=== PATIENT | male | born 1965 | race Caucasian/White ===

== ENCOUNTER 2016-06-28 19:59 | Emergency (ER) | payer OTHER ==
[~2016-06-28] VITALS: Ht 180.3 cm; Wt 103.4 kg
[~2016-06-28 19:59] MED LIST: ATHENOL325 MG PO; BAYER BACK & B1 EACH PO; FIORICET,ESG1 TABLET PO; XOPENEX HF200 INHALA IH
[2016-06-28 20:46] VITALS: BP 163/89
[2016-06-28 20:55] LABS: BICARBONATE 23.8 mEq/L (22-26); CARBOXY HGB 1.5 % (0-5); COMMENTS - BLOOD GASES A+C+; FI02 21 %; METHEMOGLOBIN 1.1 % (0-1.5); PCO2 32 mm Hg (35-45); PO2 96 mm Hg (80-100); SITE RR; pH 7.48 (7.35-7.45)
[2016-06-28 21:09] LABS: HEMATOCRIT 40.9 % (38.0-50.0); MCH 30.3 PG (29.0-34.0); MCHC 34.2 G/DL (30.0-36.0); MCV 88.5 FL (86-99); MEAN PLAT.VOLUME 9.5 uM^3 (9.0-12.4); PLATELET COUNT 276 K/uL (156-360); RBC DIS.WIDTH-CV 12.1 % (11.8-14.6); RBC DIS.WIDTH-SD 39.1 % (39-53); RED BLOOD COUNT 4.62 M/uL (4.00-5.50); WHITE BLOOD COUNT 6.6 K/uL (4.1-10.2)
[2016-06-28 21:17] LABS: CHLORIDE 105 mEq/L (99-109); POTASSIUM 3.6 mEq/L (3.7-5.4); SODIUM 139 mEq/L (136-147)
[2016-06-28 21:19] LABS: GLUCOSE 89 mg/dL (70-99)
[2016-06-28 21:20] LABS: ANION GAP 12 MEQ/L (2-14)
[2016-06-28 21:23] LABS: GFR ESTIMATE (CALCULATED) > 59 mL/min/
[2016-06-28 21:24] LABS: UREA NITROGEN (BUN) 13 mg/dL (9-23)
[2016-06-28 21:25] LABS: ADD MIUA? NO; BILIRUBIN NEGATIVE; BLOOD NEGATIVE; COLOR STRAW ((YELLOW)); GLUCOSE (STRIP) NEGATIVE; KETONES NEGATIVE; LEUKOCYTES NEGATIVE; NITRITE NEGATIVE; PROTEIN (STRIP) NEGATIVE; SPECIFIC GRAVITY 1.005 (1.000-1.030); UCUL ADDED? NO; UROBILINOGEN 0.2 MG/DL (0.2-1.0)
[2016-06-28 21:25] LABS: CREATINE KINASE 107 IU/L (1-294); TOTAL CK 107 IU/L (1-294)
[2016-06-28 21:29] LABS: TROP-I INTERPRETATION NEGATIVE; TROPONIN-I < 0.01 ng/mL (0.0-0.30)
[2016-06-28 21:31] LABS: CK-MB 1.3 ng/mL (0.0-4.9)
== END 2016-06-28 22:20 | disposition home or self-care (01) ==
LOC: EME 19:59
PROVIDERS: Emergency Medicine
DX: E86.0 Dehydration (principal); M54.5 Low back pain; K21.9 Gastro-esophageal reflux disease without esophagitis
CPT/HCPCS: 36600; 80048; 81003; 82550; 82553; 82803; 84443; 84484; 85027; 87086; 99281; 99284; J1885; J7030

== ENCOUNTER 2016-12-20 19:28 | Emergency (ER) | payer OTHER ==
[~2016-12-20] VITALS: Ht 180.3 cm; Wt 103.5 kg
[2016-12-20 19:45] LABS: HEMATOCRIT 42.2 % (38.0-50.0); MCH 31.3 PG (29.0-34.0); MCHC 34.6 G/DL (30.0-36.0); MCV 90.6 FL (86-99); MEAN PLAT.VOLUME 9.8 uM^3 (9.0-12.4); PLATELET COUNT 259 K/uL (156-360); RBC DIS.WIDTH-CV 11.9 % (11.8-14.6); RED BLOOD COUNT 4.66 M/uL (4.00-5.50); WHITE BLOOD COUNT 5.3 K/uL (4.1-10.2)
[2016-12-20 19:57] LABS: CHLORIDE 102 mEq/L (99-109); POTASSIUM 4.4 mEq/L (3.7-5.4); SODIUM 139 mEq/L (136-147)
[2016-12-20 19:59] LABS: GLUCOSE 83 mg/dL (70-99)
[2016-12-20 20:00] LABS: ANION GAP 8 MEQ/L (2-14)
[2016-12-20 20:02] LABS: GFR ESTIMATE (CALCULATED) > 59 mL/min/
[2016-12-20 20:03] LABS: UREA NITROGEN (BUN) 13 mg/dL (9-23)
[2016-12-20 20:06] LABS: TROP-I INTERPRETATION NEGATIVE; TROPONIN-I < 0.01 ng/mL (0.0-0.30)
[2016-12-20 20:28] LABS: ADD MIUA? NO; BILIRUBIN NEGATIVE; BLOOD NEGATIVE; COLOR YELLOW ((YELLOW)); GLUCOSE (STRIP) NEGATIVE; KETONES NEGATIVE; LEUKOCYTES NEGATIVE; NITRITE NEGATIVE; PROTEIN (STRIP) NEGATIVE; SPECIFIC GRAVITY 1.013 (1.000-1.030); UROBILINOGEN 0.2 MG/DL (0.2-1.0)
[2016-12-20] MEDS ORDERED: FLONASE16 G1 BOTH NARES (21:34)
[2016-12-20] MEDS ORDERED: MUCINEX D ER T1 EACH PO (21:34)
[2016-12-20] MEDS ORDERED: LEVAQUIN500 MG PO (21:34)
[2016-12-20] MEDS ORDERED: MOTRIN800 MG PO (21:35)
[2016-12-20] MEDS ORDERED: FIORICET 50-301 EACH PO (21:35)
[2016-12-20 21:53] VITALS: BP 123/76
== END 2016-12-20 21:55 | disposition home or self-care (01) ==
LOC: EME 19:28
PROVIDERS: Physician Assistant
DX: J32.9 Chronic sinusitis, unspecified (principal); J30.9 Allergic rhinitis, unspecified; I45.10 Unspecified right bundle-branch block; K21.9 Gastro-esophageal reflux disease without esophagitis; Z88.0 Allergy status to penicillin
CPT/HCPCS: 71020; 80048; 81003; 84443; 84484; 85027; 93005; 99281; 99284